=== PATIENT | male | born 1970 | race Caucasian/White ===

== ENCOUNTER 2019-05-30 13:34 | Emergency (ER) | payer OTHER ==
[2019-05-30 14:21] LABS: ABS Basophils 0.1 10^3/ul (0-0.2); ABS Eosinophils 0.3 10^3/ul (0-0.6); ABS Lymphocytes 1.6 10^3/ul (1.0-4.8); ABS Monocytes 0.9 10^3/ul (0-0.8); ABS Neutrophils 12.2 10^3/ul (1.5-7.7); Eosinophil % 1.7 %; Hematocrit 45 % (42-52); Hemoglobin 15.4 g/dL (14.0-18.0); Lymphocyte % 10.7 %; Mean Corpuscular HGB Conc 34 g/dL (31-36); Mean Corpuscular Hemoglobin 30 pg (27-31); Mean Corpuscular Volume 89 fL (80-94); Mean Platelet Volume 8.3 fL (7.4-10.4); Nucleated Red Blood Cells % 0.1; Platelet Count 304 10^3/uL (150-450); Red Blood Count 5.06 10^6 /uL (4.18-5.48); Red Cell Distribution Width 15 % (10-15)
--- NOTE | 2019-05-30 14:21 | ED ---
Abdominal Pain/Male - HPI Summary HPI Summary: 48 year old M presenting to [facility] complains of epigastric abdominal pain after drinking 1 cup of Mountain Dew at 12:00 today. The patient states the abdominal pain lasted for 2 hours and has resolved now. The patient rates the pain 9/10 initially and 0/10 currently in severity. Patient states he has been having abdominal pain after eating for 1 week. Symptoms aggravated by food. Symptoms alleviated by nothing. - History of Current Complaint Chief Complaint: EDAbdPain Stated Complaint: ABDOMINAL PAIN PER PT Time Seen by Provider: 05/30/19 14:13 Hx Obtained From: Patient Onset/Duration: Lasting Days, Lasting Weeks, Still Present Timing: Constant Severity Initially: Severe Severity Currently: None Pain Intensity: 0 Pain Scale Used: 0-10 Numeric Location: Epigastric Aggravating Factor(s): Food Alleviating Factor(s): Nothing Associated Signs And Symptoms: Positive: Other - Dizziness - Allergies/Home Medications Allergies/Adverse Reactions: Allergies Allergy/AdvReac Type Severity Reaction Status Date / Time No Known Allergies Allergy Verified 06/30/12 12:40 PMH/Surg Hx/FS Hx/Imm Hx Endocrine/Hematology History: Denies: Hx Diabetes, Hx Thyroid Disease Cardiovascular History: Reports: Hx Myocardial Infarction - stents x 2 2011 Denies: Hx Hypertension Respiratory History: Denies: Hx Asthma, Hx Chronic Obstructive Pulmonary Disease (COPD) GI History: Denies: Hx Ulcer - Surgical History Surgery Procedure, Year, and Place: 2009 - Stent placement Infectious Disease History: No Infectious Disease History: Denies: Hx Clostridium Difficile, Hx Hepatitis, Hx Human Immunodeficiency Virus (HIV), Hx of Known/Suspected MRSA, Hx Shingles, Hx Tuberculosis, Hx Known/ Suspected VRE, Hx Known/Suspected VRSA, History Other Infectious Disease, Traveled Outside the [place] in Last 30 Days - Family History Known Family History: Positive: Hypertension - Social History Alcohol Use: None Hx Substance Use: No Substance Use Type: Reports: None Hx Tobacco Use: Yes Smoking Status (MU): Heavy Every Day Tobacco Smoker Type: Cigarettes Amount Used/How Often: 1/2 ppd Length of Time of Smoking/Using Tobacco: 34 years Review of Systems Positive: Abdominal Pain Neurological: Other - dizziness All Other Systems Reviewed And Are Negative: Yes Physical Exam - Summary Physical Exam Summary: Appearance: The patient is well-nourished in no acute distress and in no acute pain. Skin: The skin is warm and dry, and skin color reflects adequate perfusion. HEENT: The head is normocephalic and atraumatic. The pupils are equal and reactive. The conjunctivae are clear and without drainage. Nares are patent and without drainage. Mouth reveals moist mucous membranes, and the throat is without erythema and exudate. The external ears are intact. The ear canals are patent and without drainage. The tympanic membranes are intact. Neck: The neck is supple with full range of motion and non-tender. There are no carotid bruits. There is no neck vein distension. Respiratory: Chest is non-tender. Lungs are clear to auscultation and breath sounds are symmetrical and equal. Cardiovascular: Heart is regular rate and rhythm. There is no murmur or rub auscultated. There is no peripheral edema and pulses are symmetrical and equal. Abdomen: The abdomen is soft. There is some mild epigastric tenderness. There are normal bowel sounds heard in all four quadrants and there is no organomegaly palpated. Musculoskeletal: There is no back tenderness noted. Extremities are non-tender with full range of motion. There is good capillary refill. There is no peripheral edema or calf tenderness elicited. Neurological: Patient is alert and oriented to person, place and time. The patient has symmetrical motor strength in all four extremities. Cranial nerves are grossly intact. Deep tendon reflexes are symmetrical and equal in all four extremities. Psychiatric: The patient has an appropriate affect and does not exhibit any anxiety or depression. Triage Information Reviewed: Yes Vital Signs On Initial Exam: Initial Vitals Temp Pulse Resp BP Pulse Ox 95.8 F 67 16 182/85 94 05/30/19 13:38 05/30/19 13:38 05/30/19 13:38 05/30/19 13:38 05/30/19 13:38 Vital Signs Reviewed: Yes Diagnostics - Vital Signs Vital Signs Temp Pulse Resp BP Pulse Ox 05/30/19 13:38 95.8 F 67 16 182/85 94 - Laboratory Result Diagrams: 05/30/19 14:13 05/30/19 14:13 Lab Statement: Any lab studies that have been ordered have been reviewed, and results considered in the medical decision making process. - Additional Comments Diagnostic Additional Comments: Gallbladder US shows, per radiologist: 1. Cholelithiasis with mild gallbladder wall thickening and small volume of pericholecystic fluid as well as mild tenderness when scanning over the gallbladder fossa concerning for potential early cholecystitis. 2. Negative for biliary dilatation. 3. Hepatomegaly and hepatosteatosis. ED physician has reviewed this report. Re-Evaluation - Re-Evaluation First Eval Re-Evaluation Time: 15:57 Comment: patient updated on results of Gallbladder US. patient informed of the possibility of surgery Second Eval Re-Evaluation Time: 16:21 Comment: surgery MOBILE UI DESIGNER in ED to see patient and states that patient does not want to stay in the hospital and wants to go home Abdominal Pain Male Course/Dx - Course Course Of Treatment: Mr. Kc has had epigastric pain every time he eats tried to eat anything in the last week. He drank a Mountain Dew today and the pain returned therefore he came to the department. He was here in the hospital cafeteria. The pain resolved just about when he got here. He was mildly tender in the epigastrium and right upper quadrant. He was nontoxic in appearance stable vitals. His labs revealed a leukocytosis of 15,000. He had some mild elevations of his transaminases. Ultrasound of his gallbladder revealed a likely early acute cholecystitis. Dr. Suh was consulted and came to the department. The patient was adamant about not staying in the hospital tonight as he had things to do at home. He did promise to return tomorrow at which time he will be admitted. He was given a prescription for Augmentin and discharged to return tomorrow. - Diagnoses Provider Diagnoses: Acute cholecystitis - Provider Notifications Discussed Care Of Patient With: Win Staples Time Discussed With Above Provider: 15:55 Instructed by Provider To: Other - Dr. Staples, surgery, will come see the patient in the ED. Spoke with Dr. Vera, hospitalist, at 16:35 who is aware of the patient. Dr. Staples states at 17:06 that patient insists on going home. Dr. Staples recommends giving patient a prescription for Augmentin and follow up from [facility] and him. Discharge ED - Sign-Out/Discharge Documenting (check all that apply): Patient Departure - Discharge Patient Received Moderate/Deep Sedation with Procedure: No - Discharge Plan Condition: Fair Disposition: HOME Prescriptions: Amoxicillin/Clavulanate TAB* [Augmentin TAB 875*] 875 mg PO BID #20 tab Patient Education Materials: Cholecystitis (ED) Referrals: [facility] [Outside] - 2 Days Win Staples MD [Medical Doctor] - If Needed Additional Instructions: [facility]3 [facility]. Follow up with Dr. Staples if needed. RETURN TO EMERGENCY DEPARTMENT FOR NEW OR WORSENING SYMPTOMS. - Billing Disposition and Condition Condition: FAIR Disposition: Home - Attestation Statements Document Initiated by Scribe: Yes Documenting Scribe: Fernanda Dowling Provider For Whom Sadaf is Documenting (Include Credential): Dereje Mathur MD Scribe Attestation: Fernanda Benjamin, scribed for Dereje Mathur MD on 05/30/19 at 1855. Scribe Documentation Reviewed: Yes Provider Attestation: The documentation as recorded by the Fernanda benoit accurately reflects the service I personally performed and the decisions made by me, Dereje Mathur MD Status of Scribe Document: Viewed
[2019-05-30 14:49] LABS: Albumin 4.4 g/dL (3.2-5.2); Albumin/Globulin Ratio 1.5 (1-3); BUN/Creatinine Ratio 11.9 (8-20); Calcium 9.5 mg/dL (8.6-10.3); EGFR Non-African American 96.7 (>60); Magnesium 1.8 mg/dL (1.9-2.7); Potassium 3.8 mmol/L (3.5-5.0); Total Bilirubin 1.2 mg/dL (0.2-1.0); Total Protein 7.4 g/dL (6.4-8.9)
[2019-05-30 17:36] VITALS: BP 155/71
--- NOTE | 2019-05-30 19:20 | CONS ---
SURGICAL CONSULTATION NOTE: DATE OF CONSULT: 05/30/19 LOCATION: This patient was seen on 05/30/19 in the [facility] Emergency Department. ATTENDING PHYSICIAN: Dr. Staples. CHIEF COMPLAINT: Abdominal pain. HISTORY OF PRESENT ILLNESS: The patient is a 48-year-old male who presented to the [facility] Emergency Department today complaining of epigastric abdominal pain after drinking 1 cup of Mountain Dew around noon today. The patient stated that the abdominal pain lasted for 2 hours and by the time he reached the emergency department, the pain had resolved. Initially, the pain was rated at 9/10 and currently is 0 to 1/10. The patient states he has been having abdominal pain in the epigastric region after eating fatty foods for the past week. He has had 1 episode of vomiting today. In the emergency room, his white count was elevated at 15, total bilirubin 1.2, AST 128, ALT 115, alkaline phosphatase 109, lipase was normal at 11, and glucose was elevated at 154. A gallbladder ultrasound revealed cholelithiasis with mild gallbladder wall thickening and a small amount of pericholecystic fluid and question of a mild Gu's sign, question early cholecystitis. The patient denies any dark urine or dysuria; he reports that he had a bowel movement this morning that was brown and formed. He denies having had similar episodes of abdominal pain in the past. PAST MEDICAL HISTORY: Significant for myocardial infarction in 2012 with stenting x2 here at [facility]. He also states that he is prediabetic but is not on any current medications. PAST SURGICAL HISTORY: Limited to stents for myocardial infarction. MEDICATIONS: None currently. ALLERGIES: No known drug allergies. REVIEW OF SYSTEMS: Constitutional: No fevers, chills, excessive fatigue, or unintended weight loss. Endocrine: Prediabetic by the patient's report. No known thyroid disease. Respiratory: No shortness of breath or chronic cough. No recent upper respiratory infections. Cardiovascular: No chest pain or palpitations; history of myocardial infarction with stenting x2 in 2011; he states that he was on Plavix for about 1 year; he has not had any recent cardiology followup. Gastrointestinal: As described in history of present illness. Genitourinary: No dysuria. No change in the color of urine. Musculoskeletal: No myalgias or joint pain. Neurologic: No headache or blurred vision or areas of focal weakness. Skin: History of eczema, currently left upper extremity is erythematous with multiple small skin lesions consistent with eczema. General: No previous anesthesia complications. No history of deep vein thrombosis or pulmonary embolism. No bleeding tendencies and he has never received a blood transfusion. SOCIAL HISTORY: He is single and lives with his ex; he works at the [employer] ; he smokes about 1 pack of cigarettes per day and also smokes marijuana, but denies the current use of other substances but many years ago used IV drugs. FAMILY HISTORY: Mother from natural causes. Father at age 82 with history of aneurysm. The patient's sister is alive at age 60 and has been treated for unspecified type of cancer. PHYSICAL EXAMINATION: General: The patient is a 48-year-old obese male, well developed, in no acute distress. Height 5 feet 9 inches, weight 227 pounds, body mass index 33.5. Blood pressure 153/83, pulse 88 and regular, respiratory rate 20, O2 saturation on room air 97%, temp 96. Skin: Warm; upper extremities , left greater than right with eczema. No open sores. HEENT: Benign. Neck: Supple. No cervical lymphadenopathy. Lungs: Breath sounds bilaterally clear and equal. Heart: Regular rate and rhythm. No murmurs or rubs appreciated. Abdomen: Obese, soft, and nondistended, mildly tender to palpation over the epigastric region in the right upper quadrant. No guarding or rebound; no obvious masses or organomegaly but exam is limited by body habitus; negative Gu's sign. Genitalia and rectal exams: Deferred. Extremities: Warm without edema. Neurologic: Alert and oriented x3. IMPRESSION: Early cholecystitis; cholelithiasis; the patient is adamant about leaving the hospital today; his abdominal pain has completely resolved; Dr. Staples also examined the patient and made a plan for the patient to be discharged from the emergency department and discussed the plan with Dr. Dereje Mathur; the patient will be given a prescription for Augmentin 875 mg p.o. q.12 hours; he will have a followup in our office with Dr. Staples. He will be referred to [facility] to establish primary care and he will be referred for cardiology clearance prior to laparoscopic cholecystectomy in the future. TIME SPENT: Seventy five minutes with greater than 50% in [id number], history taking, physical examination, patient education and coordination of care. SIMON DE LOS SANTOS NP [id number]/[facility] #: [id number] [facility] C[facility]ERSergio
[2019-05-31] MEDS ORDERED: Magnesium Sulfate 1 GM IV* 1 GM/100 ML BAG IV ONE (01:18)
== END 2019-05-30 17:27 | disposition home or self-care (01) ==
LOC: ED 13:34
DX: K81.0 Acute cholecystitis (principal); F17.210 Nicotine dependence, cigarettes, uncomplicated; I25.2 Old myocardial infarction; Z95.5 Presence of coronary angioplasty implant and graft; Z79.899 Other long term (current) drug therapy; R16.0 Hepatomegaly, not elsewhere classified
CPT/HCPCS: 36415; 76705; 80053; 83605; 83690; 83735; 84484; 85025; 93005; 99283

== ENCOUNTER 2019-05-30 22:37 | Inpatient (IN) | payer OTHER ==
--- NOTE | 2019-05-30 22:42 | ED ---
Abdominal Pain/Male - HPI Summary HPI Summary: 48 yo male [place] [facility] [place] requesting admission. He tells me that he was seen here earlier today and was told he had early acute cholecystitis. Surgery was consulted and admission was recommended to the pt, but he declined as he had things to do at home. There is question whether he was advised to return 05/30 for admission or if he was to f/u outpatient with surgery on Sunday. Pt tells me that he was told to return tomorrow (05/30) for admission. He is here stating that his pain has not changed. He is still nauseous and vomiting when eating. Denies fever, chills, SOB, chest pain. - History of Current Complaint Stated Complaint: GALLBLADDER PER EMS Time Seen by Provider: 05/30/19 22:42 Hx Obtained From: Patient Severity Initially: Mild Severity Currently: Mild Pain Intensity: 1 Pain Scale Used: 0-10 Numeric - Allergies/Home Medications Allergies/Adverse Reactions: Allergies Allergy/AdvReac Type Severity Reaction Status Date / Time No Known Allergies Allergy Verified 06/30/12 12:40 PMH/Surg Hx/FS Hx/Imm Hx Endocrine/Hematology History: Denies: Hx Diabetes, Hx Thyroid Disease Cardiovascular History: Reports: Hx Myocardial Infarction - stents x 2 2011 Denies: Hx Hypertension Respiratory History: Denies: Hx Asthma, Hx Chronic Obstructive Pulmonary Disease (COPD) GI History: Denies: Hx Ulcer - Surgical History Surgery Procedure, Year, and Place: 2009 - Stent placement Infectious Disease History: Denies: Hx Clostridium Difficile, Hx Hepatitis, Hx Human Immunodeficiency Virus (HIV), Hx of Known/Suspected MRSA, Hx Shingles, Hx Tuberculosis, Hx Known/ Suspected VRE, Hx Known/Suspected VRSA, History Other Infectious Disease - Family History Known Family History: Positive: Hypertension - Social History Alcohol Use: None Hx Substance Use: No Substance Use Type: Reports: None Hx Tobacco Use: Yes Smoking Status (MU): Heavy Every Day Tobacco Smoker Type: Cigarettes Amount Used/How Often: 1/2 ppd Length of Time of Smoking/Using Tobacco: 34 years Review of Systems Constitutional: Negative Cardiovascular: Negative Respiratory: Negative Positive: Abdominal Pain, Nausea Genitourinary: Negative Neurological: Negative Psychological: Normal All Other Systems Reviewed And Are Negative: No Physical Exam - Summary Physical Exam Summary: GENERAL: NAD. WDWN. No pain distress. SKIN: No rashes, sores, or open wounds. HEENT: Head: AT/NC Eyes: PERRLA. EOM intact. NECK: Supple. Nontender. No lymphadenopathy. CHEST: CTAB. No r/r/w. No accessory muscle use. Breathing comfortably and in no distress. CV: RRR. Without m/r/g. Pulses intact. Brisk cap refill. ABDOMEN: Soft. NTTP. No distention or guarding. No CVA tenderness. Bowel sounds present NEURO: Alert. PSYCH: Age appropriate behavior. Triage Information Reviewed: Yes Vital Signs On Initial Exam: Vital Signs: Temp Pulse Resp BP Pulse Ox 96.6 F 53 16 193/87 93 05/30/19 22:43 05/30/19 23:13 05/30/19 22:43 05/30/19 23:13 05/30/19 23:13 Vital Signs Reviewed: Yes Abdominal Pain Male Course/Dx - Course Course Of Treatment: Reviewed labs, imaging, and EKG from earlier. Called to Dr. Staples of surgery and he states that if Hospitalist wants to admit pt he will see pt in the morning. Discussed case with Dr. Zmimer of Hospitalist service who agrees to admit the patient. - Diagnoses Provider Diagnoses: Cholecystitis Discharge ED - Sign-Out/Discharge Documenting (check all that apply): Patient Departure Patient Received Moderate/Deep Sedation with Procedure: No - Discharge Plan Condition: Stable Disposition: ADMITTED TO [facility] - Billing Disposition and Condition Condition: STABLE Disposition: Admitted to [facility]
[2019-05-31] MEDS ORDERED: traMADol TAB* 50 MG PO PRN (01:04)
[2019-05-31] MEDS ORDERED: Acetaminophen TAB* 325 MG PO PRN (01:15)
[2019-05-31 01:19] LABS: ABS Lymphocytes 0.7 10^3/ul (1.0-4.8); ABS Monocytes 0.8 10^3/ul (0-0.8); ABS Neutrophils 16.9 10^3/ul (1.5-7.7); Eosinophil % 0.1 %; Hematocrit 45 % (42-52); Hemoglobin 15.1 g/dL (14.0-18.0); Mean Corpuscular HGB Conc 34 g/dL (31-36); Mean Corpuscular Hemoglobin 30 pg (27-31); Mean Corpuscular Volume 88 fL (80-94); Mean Platelet Volume 8.6 fL (7.4-10.4); Platelet Count 318 10^3/uL (150-450); Red Blood Count 5.04 10^6 /uL (4.18-5.48); Red Cell Distribution Width 15 % (10-15); White Blood Count 18.5 10^3/uL (3.5-10.8)
[2019-05-31] MEDS ORDERED: hydrALAZINE IV* 20 MG/ML VIAL IV SLOW PU PRN (01:20)
[2019-05-31 01:37] LABS: Albumin 4.5 g/dL (3.2-5.2); Albumin/Globulin Ratio 1.5 (1-3); BUN/Creatinine Ratio 13.2 (8-20); C Reactive Protein 11.89 mg/L (<8.01); Calcium 9.2 mg/dL (8.6-10.3); EGFR African American 131.4 (>60); EGFR Non-African American 108.6 (>60); Globulin 3.1 g/dL (2-4); Indirect Bilirubin 1.1 mg/dL (0.3-1.0); Potassium 3.9 mmol/L (3.5-5.0); Total Bilirubin 1.5 mg/dL (0.2-1.0); Total Protein 7.6 g/dL (6.4-8.9)
[2019-05-31] MEDS: Metoprolol Succinate XL TAB* 25 MG PO SCH ×2 (02:39→12:50)
[2019-05-31] MEDS: cefTRIAXone(*) 1 GM in NS 0.9% 50 ML* 50 ML IVPB SCH ×2 (02:39→23:55)
[2019-05-31 02:49] LABS: INR 1.16 (0.82-1.09)
[2019-05-31 03:05] LABS: HDL Cholesterol 35.9 mg/dL
[2019-05-31] MEDS: metroNIDAZOLE IV 500 MG/100ML* 500 MG/100 ML BAG IVPB SCH ×4 (04:00→21:46)
--- NOTE | 2019-05-31 06:31 | HP ---
HISTORY AND PHYSICAL: DATE OF ADMISSION: 05/31/19 ADMITTING PROVIDER: Brennen Zimmer MD. PRIMARY CARE PROVIDER: None; goes to the [facility]. CHIEF COMPLAINT: Epigastric pain, nausea, vomiting, known gallstones found on ED visit a day prior to admission. HISTORY OF PRESENT ILLNESS: Simone Kc is a 48-year-old male with past medical history of total occlusion of LAD, status post drug-eluting stent on 02/08. He was noncompliant with his Plavix medication and within 6 weeks had a complete reocclusion. This was opened by balloon angioplasty. He does not have medical insurance, has limited access to primary medical care. He has followed with the [facility] to evaluate for left arm pustules in the setting of underlying psoriasis. He was in his usual state of health, but about a week ago, developed some intermittent epigastric pain, worse after every meal, especially fatty meals, has had multiple episodes of nausea and vomiting. He is a bit of a reticent historian. He was seen on 05/30/19 in the emergency room, had a gallbladder ultrasound which demonstrated possible early acute cholecystitis with mild gallbladder wall thickening, small volume of pericholecystic fluid, and mild sonographic Gu sign. No biliary dilatation. There was hepatomegaly and hepatosteatosis. He had a leukocytosis of 15, elevated transaminitis, AST of 128, ALT of 115, alk phos 109, T. bili of 1.2. Glucose was elevated at 154, lipase was normal at 11. He was evaluated by Dr. Staples and Yolanda Em of the surgery team, who recommended admission for cholecystectomy. He insisted that he had things that he had to attend to at home, which he would not provide details about, and the plan was for him to get Augmentin and follow up as an outpatient with Surgery after possibly cardiac clearance. He was not able to fill his Augmentin as [facility] had already closed. His pain had improved from 10/10 around noon on 05/30/19 to about he says 3/10. He still feels like he cannot eat food, so he returned at this time wanting surgery. He has a history of also right-sided, with occasional left-sided, sciatica-like symptoms which limits his ability to exercise. He occasionally has a cough. Denies wheeze. Denies chest pain. He is on no medications. He did get some antibiotic about 6 weeks ago from a free clinic when he developed pustules on his left forearm that he attempted to pop. He does not know which antibiotic he got. He was referred to the hospitalist service for admission after the ED physician spoke with Dr. Staples. PAST MEDICAL HISTORY: CAD, status post STEMI with LAD complete occlusion with revascularization balloon angioplasty on 06/27/11 after medication noncompliance with dual-antiplatelet therapy. Psoriasis, obesity (BMI 33.5), current smoker. MEDICATIONS: None. ALLERGIES: No known drug allergies. FAMILY HISTORY: Mother of natural causes. Father of an aneurysm at age 82. Sister is alive at age 60 with unknown cancer. SOCIAL HISTORY: The patient is a current smoker, 1 pack per day, 25 to 30 years. Denies alcohol use. He does occasionally smoke marijuana. He works as a cook at the [employer]. He lives with a roommate. Medical surrogate is his sister Aicha Oh, . He desires to be a full code. PHYSICAL EXAMINATION GENERAL APPEARANCE: In no acute distress. VITAL SIGNS: Temperature 96.6, pulse 84, satting 95% on room air, and blood pressure initially 130/70 but as high as 193/87. HEENT: Normocephalic, atraumatic. Pupils equal, round, and reactive to light. Extraocular motions intact. No scleral icterus. NECK: Supple. LUNGS: Clear to auscultation bilaterally without wheezing, rales, or rhonchi. CARDIOVASCULAR: Regular rate and rhythm. No murmurs, rubs, or gallops. ABDOMEN: Soft. Epigastric tenderness and slight right upper quadrant tenderness. No Gu sign. No rebound tenderness EXTREMITIES: Warm, well perfused. No peripheral edema. NEUROLOGIC: Cranial nerves II through XII intact. Construction Carpenter strength intact. SKIN: Multiple tattoos throughout body. He has psoriasis like scaly plaques on his left forearm. DIAGNOSTIC STUDIES/LAB DATA: None yet from this admission, but at 2 p.m. on , he had a white count of 15.0, hemoglobin 15.4, hematocrit 45, platelets 304. Sodium 139, potassium 3.8, chloride 101, carbon dioxide 33, BUN 10, creatinine 0.84, glucose 154, lactic acid 1.1, calcium 9.5, magnesium 1.8. Total bili 1.2, AST 128, ALT 115, alk phos 109. Troponin 0.00. Lipase 11. EKG at that time showed normal sinus rhythm, Q waves in V1 through V3, poor R- wave progression, T-wave flattening, QTC 453, normal axis. Imaging: Gallbladder ultrasound on 05/30/19 demonstrated cholelithiasis with mild gallbladder wall thickening and small volume of pericholecystic fluid as well as mild tenderness when scanning over the gallbladder fossa with consideration for potential early cholecystitis. No biliary dilatation. There is hepatomegaly and hepatosteatosis. ASSESSMENT AND PLAN: Simone Kc is a 48-year-old male with past medical history of coronary artery disease, status post left anterior descending artery stent, 30- pack-year current smoker, obesity with BMI of 33.5, presenting with gallbladder full of gallstones, some mildly thickened gallbladder wall and pericholecystic fluid, concerning for early cholecystitis, leukocytosis of 15, and continued abdominal discomfort especially after food, which will cause nausea and vomiting, is being admitted to the hospitalist service with plan to be evaluated by Dr. Staples, who was involved in the ED yesterday, knows about the patient and will see the patient later in the morning with a possible plan for surgical intervention during this admission. He does meet 1 systemic inflammatory response syndrome criteria with his leukocytosis and I am waiting admission labs at this time to include LFTs, BMP, CBC, CRP, INR, blood culture, A1c, lipid profile, and lactic acid. We will control his pain with Tylenol and tramadol for moderate, give him ceftriaxone and metronidazole given the early acute cholecystitis and leukocytosis, clinically nontoxic-appearing and does not meet sepsis criteria at this time. His blood pressure is elevated in the setting of pain. I will give him hydralazine p.r.n., and I am going to start metoprolol succinate 25 mg p.o. daily. Given his history of myocardial infarction and cardiac risk factors, unclear if he has hypertension outside the stetting of pain. I will give him Zofran for nausea, put him on n.p.o. diet except for ice chips and medications. If surgery is delayed, I will put him on a low-fat liquid diet. He will get heparin for DVT prophylaxis. Medical surrogate is his sister. In terms of surgical risk stratification, RCRI includes high-risk intraperitoneal surgery and his coronary artery disease, RCRI of 2. His exercise tolerance is unknown given his right-sided sciatica, largely limiting him from any exercise. EKG shows Q waves anteroseptally. He is euvolemic on exam. I will also add on a BNP. If that is elevated, would recommend echocardiogram to evaluate. For now, he has RCRI of 2, class III risk with a 10.1% risk of cardiac arrest, myocardial infarction, or in the 30 days of surgery. As mentioned, we will add on A1c and lipid panel to help further clarify any of his modifiable cardiac risks. He is a full code. [id number]/[facility] #: [id number] MTDD
[2019-05-31] MEDS ORDERED: Ondansetron INJ* 2 MG/ML VIAL IV PRN (08:14)
[2019-05-31] MEDS ORDERED: NS 0.9% 1000 ML** 1,000 ML IV SCH (08:15)
--- NOTE | 2019-05-31 10:40 | PN ---
Subjective Date of Service: 05/31/19 Interval History: Mr. Kc is feeling better today. Abdominal pain has improved. No N/V reported during my exam, though nursing did report that he vomited shortly after. He denies CP, SOB, dizziness. He may be willing to start medication for HTN and HLD, but is worried because the last antihypertensive he was on caused him to syncopize. Nursing requesting IVF as the patient is NPO and now vomiting. Family History: Unchanged from Admission Social History: Unchanged from Admission Past Medical History: Unchanged from Admission Objective Active Medications: Acetaminophen (Tylenol Tab*) 650 mg PO Q6H PRN MILD PAIN or TEMP > 100.4 Hydralazine HCl (Apresoline Iv*) 20 mg IV SLOW PU Q2H PRN Systolic Bp Greater Than:180 Ceftriaxone Sodium 1 gm/ (Sodium Chloride) 50 mls @ 100 mls/hr IVPB Q24HR@2200 [facility] Metronidazole/Sodium Chloride (Flagyl 500 Mg Ivpb*) 500 mg in 100 mls @ 100 mls /hr IVPB Q6H [facility] Sodium Chloride (Ns 0.9% 1000 Ml) 1,000 mls @ 100 mls/hr IV PER RATE [facility] Metoprolol Succinate (Toprol Xl Tab*) 25 mg PO DAILY [facility] Nicotine (Nicotine Patch 14 Mg/24 Hr*) 1 patch TRANSDERM DAILY [facility] Ondansetron HCl (Zofran Inj*) 4 mg IV Q6H PRN NAUSEA/VOMITING Tramadol HCl (Ultram*) 50 mg PO Q8H PRN PAIN - MODERATE Vital Signs - 8 hr 05/31/19 05/31/19 04:19 07:55 Temperature 98.7 F 98.5 F Pulse Rate 87 77 Respiratory 18 20 Rate Blood Pressure 149/76 116/60 (mmHg) O2 Sat by Pulse 93 93 Oximetry Oxygen Devices in Use Now: None Appearance: Middle-aged male laying in bed in NAD Eyes: No Scleral Icterus Ears/Nose/Mouth/Throat: Mucous Membranes Moist Neck: NL Appearance and Movements; NL JVP, Trachea Midline Respiratory: Symmetrical Chest Expansion and Respiratory Effort, Clear to Auscultation Cardiovascular: NL Sounds; No Murmurs; No JVD, RRR Abdominal: - - Normoactive BS, tender to epigastric area Extremities: No Edema Neurological: Alert and Oriented x 3 Lines/Tubes/Other Access: Clean, Dry and Intact Peripheral IV Result Diagrams: 05/31/19 01:09 05/31/19 01:09 Assess/Plan/Problems-Billing Assessment: Mr. Kc is a 48 yo M with PMH of CAD and [place] w/ stent x1 and subsequent balloon angioplasty, obesity, and tobacco use; who presented to the ED with c/o epigastric pain with N/V and was found to have early findings of acute cholecystitis. - Patient Problems (1) Cholecystitis Code(s): K81.9 - CHOLECYSTITIS, UNSPECIFIED Comment: - Pain and N/V slightly improved with abx - Leukocytosis, but not meeting sepsis criteria - Elevated LFTs - Appreciate Surgery consult - Start IVF while NPO - Continue ceftriaxone, Flagyl (2) Hypertension Code(s): I10 - ESSENTIAL (PRIMARY) HYPERTENSION Comment: - SBP up to 190s on admission - Patient reports he was previously on medication which caused syncope, but unknown what medication - Continue metoprolol, hydralazine PRN (3) CAD (coronary artery disease) Code(s): I25.10 - ATHSCL HEART DISEASE OF [place] CORONARY ARTERY W/O ANG PCTRS Comment: - STEMI with complete LAD occlusion s/p ALYSON in 2010, though patient was not compliant with Plavix and had complete reocclusion within 6 weeks requiring balloon angioplasty - Not on any home medications (though certainly should be) (4) Hyperlipidemia Code(s): E78.5 - HYPERLIPIDEMIA, UNSPECIFIED Comment: - LDL 115 - Start atorvastatin (5) Tobacco dependence Code(s): F17.200 - NICOTINE DEPENDENCE, UNSPECIFIED, UNCOMPLICATED Comment: - Encourage cessation - Continue nicotine patch (6) DVT prophylaxis Code(s): Z29.9 - ENCOUNTER FOR PROPHYLACTIC MEASURES, UNSPECIFIED Comment: - SCDs (7) Full code status Code(s): Z78.9 - OTHER SPECIFIED HEALTH STATUS Comment: Status and Disposition: Inpatient. Anticipate d/c home when medically stable. He is at high risk of noncompliance. Attending: Patricia Rodarte
[2019-05-31] MEDS: Nicotine PATCH 14 MG/24 HR* PATCH TRANSDERM SCH (11:04)
--- NOTE | 2019-05-31 12:29 | CONS ---
CC: [facility] CONSULTATION REPORT: DATE OF CONSULT: 05/31/19 LOCATION: In Room 342. HISTORY OF PRESENT ILLNESS: I saw Mr. Kc in the emergency room with Yolanda Em yesterday . Please refer to the note from . I agreed with the plan at that time for ad mission, IV antibiotics with possibility of surgical intervention after cardiology evaluation. The p ajit has lost to followup after undergoing stent placement years ago. The patient currently has no primary care doctor. In the emergency room yesterday, the patient had concern about discussing something with his employer and had to leave. It is unclear if the patient is still actively using drugs as he did admit to [facility] IV drugs in the past. Nevertheless, the patient represented to the emergency room, unable to obta in prescription for pain medications and antibiotics and could not deal with the pain and was admitte d to the hospitalist service in the overnight period for diagnosis of acute cholecystitis. PAST MEDICAL HISTORY: Reviewed at the time of initial evaluation on 05/30/19. PAST SURGICAL HISTORY: Reviewed at the time of initial evaluation on 05/30/19. Today, the patient states he is feeling somewhat better after IV fluids and antibiotics. He is still vomiting. He has been ambulatory and he has been afebrile. PHYSICAL EXAM: Today, he is afebrile. Vital signs are stable. Alert and oriented x3, in no apparen t distress. Head, Ears, Eyes, Nose, and Throat: Normocephalic, atraumatic. Sclerae anicteric. Abd omen: Soft, obese, nontender. No palpable lesions. Rectal Exam: Not performed. Extremities: Wit hin normal limits. DIAGNOSTIC STUDIES/LAB DATA: Labs reviewed show white count elevated at 18.5, up from 15 yesterday w ith left shift. The patient's chemistry panel shows increase in total bilirubin to 1.5 as well as el evation of transaminases. Ultrasound from yesterday reviewed. Stones and mild gallbladder wall thickening. IMPRESSION AND PLAN: Acute cholecystitis with 7 days of symptoms in a patient who is at risk of not being able to followup with both doctors and with medication recommendations. I recommend at this ti me admission, IV antibiotics, n.p.o. status at least for now with revisiting this tomorrow. We can c onsider surgical intervention next week depending how patient is. He would need a cardiology evaluat ion preoperatively. My thoughts at this time would be to have patient just be treated with antibioti cs at this point and followup as an outpatient, but to be admitted through this portion of his course . We will continue n.p.o. and possibly start him on an oral diet tomorrow. I will discuss with the hospitalist. I do recommend repeat labs tomorrow and I also recommend a hemoglobin A1c. [id number]/[facility] #: [id number]
[2019-05-31] MEDS: NS 0.9% 1000 ML** 1,000 ML IV SCH ×2 (14:53→20:50)
[2019-05-31] MEDS: Atorvastatin* 40 MG TAB PO SCH (17:40)
[2019-05-31] MEDS ORDERED: Nicotine Patch Removal NOTE PATCH OFF SCH (21:00)
[2019-06-01] MEDS: metroNIDAZOLE IV 500 MG/100ML* 500 MG/100 ML BAG IVPB SCH ×3 (02:48→14:54)
[2019-06-01 06:15] LABS: Hematocrit 44 % (42-52); Hemoglobin 14.5 g/dL (14.0-18.0); Mean Corpuscular HGB Conc 33 g/dL (31-36); Mean Corpuscular Hemoglobin 30 pg (27-31); Mean Corpuscular Volume 89 fL (80-94); Platelet Count 267 10^3/uL (150-450); Red Cell Distribution Width 15 % (10-15); White Blood Count 18.2 10^3/uL (3.5-10.8)
[2019-06-01 06:30] LABS: Albumin/Globulin Ratio 1.4 (1-3); BUN/Creatinine Ratio 16.1 (8-20); Calcium 8.9 mg/dL (8.6-10.3); EGFR African American 112.4 (>60); EGFR Non-African American 92.9 (>60); Globulin 2.8 g/dL (2-4); Potassium 3.6 mmol/L (3.5-5.0); Total Bilirubin 1.9 mg/dL (0.2-1.0); Total Protein 6.8 g/dL (6.4-8.9)
[2019-06-01 07:25] LABS: ABS Basophils 0.1 10^3/ul (0-0.2); ABS Eosinophils 0.1 10^3/ul (0-0.6); ABS Lymphocytes 1.8 10^3/ul (1.0-4.8); ABS Monocytes 1.9 10^3/ul (0-0.8); ABS Neutrophils 14.2 10^3/ul (1.5-7.7); Eosinophil % 0.5 %; Lymphocyte % 9.9 %
[2019-06-01] MEDS: NS 0.9% 1000 ML** 1,000 ML IV SCH (07:51)
[2019-06-01] MEDS: Metoprolol Succinate XL TAB* 25 MG PO SCH (08:43)
[2019-06-01] MEDS: Nicotine PATCH 14 MG/24 HR* PATCH TRANSDERM SCH (08:48)
--- NOTE | 2019-06-01 13:08 | PN ---
Subjective Date of Service: 06/01/19 Interval History: Patient seen and examined. Appears to be disinterested in participating in care. States he wants to leave the hospital today. Explained to patient it would be in his best interest to stay and be treated with IV antibiotics and continued to be monitored by surgery. Also explained that echocardiogram has been ordered given his cardiac history and potential for surgery at some point. Patient indicates he may decline this test. Otherwise he has no complaints. States no fever or chills, no n/v, no abdominal pains. Family History: Unchanged from Admission Social History: Unchanged from Admission Past Medical History: Unchanged from Admission Objective Active Medications: Acetaminophen (Tylenol Tab*) 650 mg PO Q6H PRN PRN Reason: MILD PAIN or TEMP > 100.4 Atorvastatin Calcium (Lipitor*) 40 mg PO 1700 [facility] Last Admin: 05/31/19 17:40 Dose: 40 mg Hydralazine HCl (Apresoline Iv*) 20 mg IV SLOW PU Q2H PRN PRN Reason: Systolic Bp Greater Than:180 Last Admin: 05/31/19 02:40 Dose: 20 mg Ceftriaxone Sodium 1 gm/ (Sodium Chloride) 50 mls @ 100 mls/hr IVPB Q24HR@2200 [facility] Last Admin: 05/31/19 23:55 Dose: 100 mls/hr Metronidazole/Sodium Chloride (Flagyl 500 Mg Ivpb*) 500 mg in 100 mls @ 100 mls /hr IVPB Q6H [facility] Last Admin: 06/01/19 08:43 Dose: 100 mls/hr Sodium Chloride (Ns 0.9% 1000 Ml) 1,000 mls @ 150 mls/hr IV PER RATE [facility] Last Admin: 06/01/19 07:51 Dose: 150 mls/hr Metoprolol Succinate (Toprol Xl Tab*) 25 mg PO DAILY [facility] Last Admin: 06/01/19 08:43 Dose: 25 mg Nicotine (Nicotine Patch 14 Mg/24 Hr*) 1 patch TRANSDERM DAILY [facility] Last Admin: 06/01/19 08:48 Dose: Not Given Ondansetron HCl (Zofran Inj*) 4 mg IV Q6H PRN PRN Reason: NAUSEA/VOMITING Pharmacy Profile Note (Nicotine Patch Removal Note*) 1 note PATCH OFF 2100 [facility] Last Admin: 05/31/19 21:46 Dose: Not Given Tramadol HCl (Ultram*) 50 mg PO Q8H PRN PRN Reason: PAIN - MODERATE Vital Signs - 8 hr 06/01/19 06/01/19 06/01/19 08:00 08:39 12:21 Temperature 97.3 F 97.6 F Pulse Rate 71 64 Respiratory 16 16 16 Rate Blood Pressure 145/80 132/70 (mmHg) O2 Sat by Pulse 98 97 Oximetry Oxygen Devices in Use Now: None Appearance: alert, NAD Ears/Nose/Mouth/Throat: Mucous Membranes Moist Neck: NL Appearance and Movements; NL JVP, Trachea Midline Respiratory: Symmetrical Chest Expansion and Respiratory Effort, Clear to Auscultation Cardiovascular: NL Sounds; No Murmurs; No JVD, RRR Abdominal: NL Sounds; No Tenderness; No Distention, No Hepatosplenomegaly, - - obese Extremities: No Edema Skin: No Rash or Ulcers Neurological: Alert and Oriented x 3 Nutrition: - - NPO Result Diagrams: 06/01/19 05:50 06/01/19 05:50 Microbiology and Other Data: Microbiology 05/31/19 02:34 Aerobic Blood Culture - Final Blood Venous Not Reportable Anaerobic Blood Culture - Final Not Reportable Blood Culture - Preliminary No Growth Day 1 05/31/19 02:34 Aerobic Blood Culture - Preliminary Blood Venous No Growth Day 1 Anaerobic Blood Culture - Preliminary No Growth Day 1 Assess/Plan/Problems-Billing Assessment: Mr. Kc is a 48 yo M with PMH of CAD and [place] w/ stent x1 and subsequent balloon angioplasty, obesity, and tobacco use; who presented to the ED with c/o epigastric pain with N/V and was found to have early findings of acute cholecystitis. - Patient Problems (1) Cholecystitis Code(s): K81.9 - CHOLECYSTITIS, UNSPECIFIED SNOMED Code(s): 79038111 Comment: - Pain and N/V improved with abx - Leukocytosis, but not meeting sepsis criteria - Elevated LFTs, trending down - Appreciate Surgery consult, no indication for immediate surgery - Start IVF while NPO - Continue ceftriaxone, Flagyl (2) CAD (coronary artery disease) Code(s): I25.10 - ATHSCL HEART DISEASE OF [place] CORONARY ARTERY W/O ANG PCTRS SNOMED Code(s): 92120473 Comment: - STEMI with complete LAD occlusion s/p ALYSON in 2010, though patient was not compliant with Plavix and had complete reocclusion within 6 weeks requiring balloon angioplasty - Not on any home medications? Appears that compliance with any medical recommendations may be an ongoing issue - ECHO ordered in case there is an indication for surgery, however, patient does not appear motivated for any interventions (3) Hyperlipidemia Code(s): E78.5 - HYPERLIPIDEMIA, UNSPECIFIED SNOMED Code(s): 08525142 Comment: - LDL 115 - Started atorvastatin (4) Hypertension Code(s): I10 - ESSENTIAL (PRIMARY) HYPERTENSION SNOMED Code(s): 97248974 Comment: - SBP up to 190s on admission - Patient reports he was previously on medication which caused syncope, but unknown what medication - Continue metoprolol, hydralazine PRN (5) Tobacco dependence Current Visit: Yes Status: Acute Code(s): F17.200 - NICOTINE DEPENDENCE, UNSPECIFIED, UNCOMPLICATED SNOMED Code(s): 77308741 Comment: - Encourage cessation - Continue nicotine patch (6) DVT prophylaxis Code(s): Z29.9 - ENCOUNTER FOR PROPHYLACTIC MEASURES, UNSPECIFIED SNOMED Code( s): 955879250 Comment: - SCDs (7) Full code status Code(s): Z78.9 - OTHER SPECIFIED HEALTH STATUS SNOMED Code(s): 013477535 Comment: Status and Disposition: Inpatient. Anticipate d/c home when medically stable. He is at high risk of noncompliance for both his cholecystitis and cardiac issues.
--- NOTE | 2019-06-01 13:39 | PN ---
Progress Note - Progress Note Date of Service: 06/01/19 SOAP: Subjective: Pt seen and examined. Feeling well. pos appetite. no pain Objective: Temp Pulse Resp BP Pulse Ox 97.6 F 64 16 132/70 97 06/01/19 12:21 06/01/19 12:21 06/01/19 12:21 06/01/19 12:21 06/01/19 12:21 abdo: soft/ obese/ NT/ ND Assessment: Acute cholecystitis. Improving with abx Plan: No surgical intervention at this time. Abx for 1 week F[facility]u as [facility] continue cardiology w/u
[2019-06-01 15:55] VITALS: BP 132/68
[2019-06-01 15:58] LABS: Urine Appearance Clear; Urine Bacteria Absent (Absent); Urine Bilirubin Negative (Negative); Urine Blood Negative (Negative); Urine Color Amber; Urine Glucose Negative (Negative); Urine Ketones 1+ (Negative); Urine Nitrite Negative (Negative); Urine Protein Negative (Negative); Urine Red Blood Cell Trace(0-2/hpf) (Absent); Urine Specific Gravity 1.028 (1.010-1.030); Urine Squamous Epithelial Cell Present (Absent); Urine Urobilinogen Negative (Negative); Urine White Blood Cell Trace(0-5/hpf) (Absent)
[2019-06-01] MEDS: Atorvastatin* 40 MG TAB PO SCH (17:16)
--- NOTE | 2019-06-02 23:52 | DS ---
CC: Dr. Brennen Zimmer and Dr. Celine Freire of [facility]; Dr. Win Staples, surgical service * DISCHARGE SUMMARY: DATE OF ADMISSION: 05/31/19 DATE OF DISCHARGE: 06/01/19 PRIMARY CARE PROVIDER: None, usually attends [facility]. MY ATTENDING FOR TODAY: Dr. Sunita Salmeron.* (DICTATED BY JUANCHO MACHADO NP) HOSPITAL COURSE: Please refer to admitting H and P on 05/31/19. In short, Mr. Kc is a 48-year-old male with a past medical history of NC, coronary artery disease with total occlusion of his LAD in 2010 with a history of noncompliance with medical management. The patient presented to the [facility] on multiple occasions with pustules in his arm on many occasions, but other than that his medical history is somewhat unclear. He is a smoker. Approximately 1 week ago , the patient stated he started developing some epigastric pain worsening in the postprandial period, especially after fatty meals. He is also started having some subsequent nausea and vomiting. It was progressing to the point where the patient was having rapid vomiting, so he came to the emergency department to be evaluated. Gallbladder ultrasound at that time demonstrated possible early acute cholecystitis. He also had some hepatomegaly and hepatosteatosis. He had marked leukocytosis and some transaminitis as well. He was admitted with a surgical consult at that time for early acute cholecystitis. It should also be noted that he had a 10/10 pain and was unable to take any p.o. at that time. He was seen in consultation with Dr. Win Staples of surgical service, who recommended initially antibiotic therapy, IV fluids, and n.p.o. status. Because the patient had a significant cardiac history in the form of left main disease and noncompliance with medical management and restenosis of his stents, it was made clear to the patient that he would need cardiac clearance before having any surgical intervention. However , the patient did respond initially to antibiotics therapy, IV fluids, and being n.p.o. As such, Dr. Staples felt that it would be preferable for the patient to proceed with antibiotic therapy as opposed to urgent surgical intervention. I did recommend an echocardiogram for the patient because of his lack of followup per Cardiology. He did not have that while he was admitted during this hospitalization. I did have discussion with Dr. Staples regarding the patient's progress. Dr. Staples did feel that he could be discharged home on p.o. antibiotics with outpatient followup with [facility] in the next week because the patient did not have any signs or symptoms of sepsis. He did have an elevated white count, but was afebrile. He had a mildly elevated CRP of 11.89. His transaminitis did begin to trend down on his second round of labs. So, essentially, the patient was feeling better and improving. He did not report any pain on the day of discharge. He did not have any nausea or vomiting, and he was able to tolerate a diet on the day of discharge. It should also be noted the patient was not threatening to leave against medical advice, but was very demanding during his hospitalization saying that he was not willing to stay in the hospital for any further intervention. This made the patient very difficult to treat, so I think it may be difficult to continue to treat this patient in the outpatient setting. In any case, the patient was stable at the time he was discharged. His medications were sent to [facility], which is his pharmacy of the choice. DISCHARGE DIAGNOSES: 1. Early acute cholecystitis. 2. History of coronary artery disease with noncompliance. 3. Hypertension, uncontrolled. 4. Hyperlipidemia. 5. Obesity. 6. Tobacco dependence. 7. Transaminitis secondary to #1. DISCHARGE MEDICATIONS: Include: 1. Flagyl 500 mg p.o. t.i.d. x7 days. 2. Cipro 500 mg p.o. b.i.d. x7 days. New medications also include: 1. Atorvastatin 40 mg p.o. in the evening. 2. Metoprolol succinate XL 25 mg p.o. daily. 3. Also recommended nicotine patch 1 patch transderm daily. REVIEW OF SYSTEMS AT DAY OF DISCHARGE AND PHYSICAL EXAMINATION: Please refer to my note on the day of discharge for these examinations. DISPOSITION: The patient was discharged in stable condition to home. FOLLOWUPS: The patient was instructed to follow up with Dr. Win Staples and the [facility]. DIET: Low-fat heart healthy diet as tolerated. ACTIVITY: Progress as tolerated. The patient was discharged in stable condition. All questions were answered. The patient stated his understanding of the discharge instructions, medications , and followups. JUANCHO MACHADO, GOLF C[employer] REPAIRER [id number]/[facility] #: [id number] [facility]
--- NOTE | 2019-06-26 18:35 | HP ---
H&P (Free Text) History and Physical: ADDENDUM to ORIGINAL H&P 05/31: REVIEW OF SYSTEMS: Complete 14 point review of systems negative except as per HPI
== END 2019-06-01 17:35 | disposition home or self-care (01) ==
LOC: ED 22:37 → MEDTELE 05-31 01:05 → SSU 05-31 01:14
PROVIDERS: ADMIT Internal Medicine; ATTEND Internal Medicine
DX: K80.00 Calculus of gallbladder with acute cholecystitis without obstruction (principal); I25.10 Atherosclerotic heart disease of native coronary artery without angina pectoris; F17.210 Nicotine dependence, cigarettes, uncomplicated; K76.0 Fatty (change of) liver, not elsewhere classified; I10 Essential (primary) hypertension; E78.5 Hyperlipidemia, unspecified; R74.0 Nonspecific elevation of levels of transaminase and lactic acid dehydrogenase [LDH]; E66.9 Obesity, unspecified; L40.9 Psoriasis, unspecified; M54.31 Sciatica, right side; I25.2 Old myocardial infarction; Z91.14 Patient's other noncompliance with medication regimen; Z68.33 Body mass index [BMI] 33.0-33.9, adult; Z82.49 Family history of ischemic heart disease and other diseases of the circulatory system; Z80.9 Family history of malignant neoplasm, unspecified
CPT/HCPCS: 36415; 80048; 80053; 80061; 80076; 81003; 81015; 83036; 83605; 83880; 85025; 85610; 86140; 87040; 87086; 99283; A9270-GY; J0360; J0696

== ENCOUNTER 2019-08-13 09:20 | Emergency (ER) | payer OTHER ==
--- NOTE | 2019-08-13 09:34 | ED ---
Abdominal Pain/Male - HPI Summary HPI Summary: Pt. is a 49 y.o male who presents to the ER for evaluation of acute upper abdominal pain x 1 day. Pt. was seen and admitted to [facility] about two months ago and dx with cholelithiasis and possible early cholecystitis. Pt. was dc to [facility] with surgery for elective cholecystectomy. Pt. states he was unable to schedule an appointment. Pt. states this morning he developed acute, severe RUQ/ epigastric pain, nausea and diaphoresis. Pt. called 911. Pain lasted about 45 minutes and pt. is currently pain free. Past hx of CAD, HTN, HLD, obesity, smoker. Sxs are moderate in severity. No current modifying factors. - History of Current Complaint Chief Complaint: EDAbdPain Stated Complaint: ABD PAIN PER EMS Time Seen by Provider: 08/13/19 09:21 Hx Obtained From: Patient Pain Intensity: 0 - Allergies/Home Medications Allergies/Adverse Reactions: Allergies Allergy/AdvReac Type Severity Reaction Status Date / Time No Known Allergies Allergy Verified 08/13/19 09:24 Home Medications: Home Medications NK [No Home Medications Reported] 08/13/19 [History Confirmed 08/13/19] PMH/Surg Hx/FS Hx/Imm Hx Previously Healthy: Yes Endocrine/Hematology History: Denies: Hx Diabetes, Hx Thyroid Disease Cardiovascular History: Reports: Hx Myocardial Infarction - stents x 2 2011 Denies: Hx Hypertension Respiratory History: Denies: Hx Asthma, Hx Chronic Obstructive Pulmonary Disease (COPD) GI History: Denies: Hx Ulcer Sensory History: Reports: Hx Contacts or Glasses Denies: Hx Hearing Aid Opthamlomology History: Reports: Hx Contacts or Glasses - Surgical History Surgery Procedure, Year, and Place: 2009 - Stent placement Hx Anesthesia Reactions: No Infectious Disease History: No Infectious Disease History: Denies: Hx Clostridium Difficile, Hx Hepatitis, Hx Human Immunodeficiency Virus (HIV), Hx of Known/Suspected MRSA, Hx Shingles, Hx Tuberculosis, Hx Known/ Suspected VRE, Hx Known/Suspected VRSA, History Other Infectious Disease, Traveled Outside the [place] in Last 30 Days - Family History Known Family History: Positive: Hypertension, Non-Contributory - Social History Occupation: Unemployed Lives: With Family Alcohol Use: None Hx Substance Use: No Substance Use Type: Reports: None Hx Tobacco Use: Yes Smoking Status (MU): Heavy Every Day Tobacco Smoker Type: Cigarettes Amount Used/How Often: 1/2 ppd Length of Time of Smoking/Using Tobacco: 34 years Review of Systems Constitutional: Negative Negative: Fever Positive: Nasal Discharge Cardiovascular: Negative Negative: Palpitations, Chest Pain Positive: Cough. Negative: Shortness Of Breath Positive: Abdominal Pain, Nausea. Negative: Vomiting, Diarrhea Genitourinary: Negative Negative: dysuria, flank pain Skin: Negative Neurological: Negative All Other Systems Reviewed And Are Negative: Yes Physical Exam Triage Information Reviewed: Yes Vital Signs On Initial Exam: Initial Vitals Temp Pulse Resp BP Pulse Ox 96.1 F 86 16 140/88 94 08/13/19 09:22 08/13/19 09:22 08/13/19 09:22 08/13/19 09:22 08/13/19 09:22 Vital Signs Reviewed: Yes Appearance: Positive: Well-Appearing - Pt. sitting up in bed in NAD. Skin: Positive: Warm, Dry Head/Face: Positive: Normal Head/Face Inspection Eyes: Positive: Normal, EOMI Neck: Positive: Supple Respiratory/Lung Sounds: Positive: Breath Sounds Present, Other - Faint wheeze throughout. Cardiovascular: Positive: Normal, RRR Abdomen Description: Positive: Other: - Obese. Abd. is soft with mild tenderness to RUQ with mild positive page sign. Neurological: Positive: Normal, CN Intact II-III Psychiatric: Positive: Affect/Mood Appropriate Procedures - Sedation Patient Received Moderate/Deep Sedation with Procedure: No Diagnostics - Vital Signs Vital Signs Temp Pulse Resp BP Pulse Ox 08/13/19 09:22 96.1 F 86 16 140/88 94 - Laboratory Result Diagrams: 08/13/19 10:01 08/13/19 10:01 Lab Statement: Any lab studies that have been ordered have been reviewed, and results considered in the medical decision making process. Abdominal Pain Male Course/Dx - Course Course Of Treatment: Pt. presenting for eval after a 45 minute episode of pain. Pt. is currently pain free. Basic labs and ecg ordered. ECG done at 0939 shows a sinus rhythm of 71bpm, normal axis, incomplete RBB, no STEMI. Labs show minimally elevated WBC, liver and bilirubin normal. Negative trop. On re-exam pt. resting comfortably and has had no further pain. Pt. agreeable with dc home to . with [facility] and surgery for elective robert. Pt. given warning signs to return. Pt. understands and agrees with plan. - Diagnoses Differential Diagnosis/HQI/PQRI: AMI, Gall Bladder Disease, Hepatitis, Pancreatitis, Peptic Ulcer Disease, Pneumonia, Renal Colic Provider Diagnoses: Cholelithiasis Discharge ED - Sign-Out/Discharge Documenting (check all that apply): Patient Departure - Discharge Plan Condition: Improved Disposition: HOME Patient Education Materials: Gallstones (ED) Referrals: [facility] [Outside] Mick Mcgarry MD [Medical Doctor] - Additional Instructions: Call the [facility] today for follow up appointment and for referral to surgery Avoid foods high in fat/grease Return to ER for severe/constant pain, fever, vomiting, or if concerned - Billing Disposition and Condition Condition: IMPROVED Disposition: Home
[2019-08-13 09:59] LABS: Urine Appearance Clear; Urine Bilirubin Negative (Negative); Urine Blood Negative (Negative); Urine Color Yellow; Urine Glucose Negative (Negative); Urine Ketones Negative (Negative); Urine Nitrite Negative (Negative); Urine Protein Negative (Negative); Urine Urobilinogen Negative (Negative)
[2019-08-13 10:12] LABS: ABS Basophils 0.1 10^3/ul (0-0.2); ABS Eosinophils 0.3 10^3/ul (0-0.6); ABS Lymphocytes 1.3 10^3/ul (1.0-4.8); ABS Monocytes 0.8 10^3/ul (0-0.8); Hematocrit 47 % (42-52); Hemoglobin 15.5 g/dL (14.0-18.0); Lymphocyte % 11.3 %; Mean Corpuscular HGB Conc 33 g/dL (31-36); Mean Corpuscular Hemoglobin 30 pg (27-31); Mean Corpuscular Volume 90 fL (80-94); Mean Platelet Volume 8.5 fL (7.4-10.4); Nucleated Red Blood Cells % 0.1; Platelet Count 312 10^3/uL (150-450); Red Blood Count 5.22 10^6 /uL (4.18-5.48); Red Cell Distribution Width 14 % (10-15); White Blood Count 11.6 10^3/uL (3.5-10.8)
[2019-08-13 10:26] LABS: Albumin 4.2 g/dL (3.2-5.2); Albumin/Globulin Ratio 1.5 (1-3); BUN/Creatinine Ratio 15.7 (8-20); Calcium 9.5 mg/dL (8.6-10.3); EGFR African American 143.9 (>60); EGFR Non-African American 118.9 (>60); Globulin 2.8 g/dL (2-4); Potassium 4.8 mmol/L (3.5-5.0); Total Bilirubin 0.9 mg/dL (0.2-1.0)
[2019-08-13 10:31] LABS: Troponin I 0.01 ng/mL (<0.03)
[2019-08-13 11:35] VITALS: BP 155/111
== END 2019-08-13 11:35 | disposition home or self-care (01) ==
LOC: ED 09:20
DX: I25.10 Atherosclerotic heart disease of native coronary artery without angina pectoris (principal); I10 Essential (primary) hypertension; E78.00 Pure hypercholesterolemia, unspecified; F17.210 Nicotine dependence, cigarettes, uncomplicated; I25.2 Old myocardial infarction; Z95.5 Presence of coronary angioplasty implant and graft; K80.20 Calculus of gallbladder without cholecystitis without obstruction
CPT/HCPCS: 36415; 80053; 81003; 83690; 84484; 85025; 93005; 99283

== ENCOUNTER 2024-07-23 09:34 | Observation (INO) ==
[2024-07-23 12:21] LABS: ABS Basophils 0.3 10^3/uL (0.0-0.1); ABS Eosinophils 0.2 10^3/uL (0.0-0.5); ABS Lymphocytes 3.7 10^3/uL (1.0-4.8); ABS Monocytes 1.2 10^3/uL (0.0-1.1); ABS Neutrophils 12.2 10^3/uL (1.5-7.6); ABS Nucleated RBC 0.02 10^3/ul; Eosinophil % 0.9 %; Hematocrit 47.7 % (38-53); Hemoglobin 16.2 g/dL (13.2-16.3); Lymphocyte % 20.9 %; Mean Corpuscular Hemoglobin 29.8 pg (27-33); Mean Corpuscular Volume 87.6 fL (80-97); Mean Platelet Volume 9.2 fL (7.5-11.2); Nucleated Red Blood Cells % 0.1 %/100WBC (0.0-0.8); Platelet Count 314 10^3/uL (150-450); Red Blood Count 5.44 10^6/uL (4.06-5.63); Red Cell Distribution Width 13.7 % (12-17); White Blood Count 17.5 10^3/uL (3.6-10.2)
[2024-07-23] MEDS: Iodixanol 320 (CONTRAST) 100 ML SDV IV ONE (12:28)
[2024-07-23 12:50] LABS: Activated Partial Thrombo Time 29.6 seconds (26.0-38.0); INR 1.09 (0.85-1.14)
[2024-07-23 13:14] LABS: Albumin 4.4 g/dL (3.2-5.2); Calcium 9.6 mg/dL (8.6-10.3); Creatinine, Serum 0.75 mg/dL (0.67-1.17); Direct Bilirubin 0.2 mg/dL (0.03-0.18); Globulin 2.2 g/dL (2-4); HDL Cholesterol 22.1 mg/dL; Indirect Bilirubin 1.3 mg/dL (0.3-1.0); Potassium 3.3 mmol/L (3.5-5.0); Total Bilirubin 1.5 mg/dL (0.2-1.0); Total Protein 6.6 g/dL (6.4-8.9); eGFR CKD-EPI 105.9 (>60)
[2024-07-23 15:29] LABS: Urine Appearance Clear; Urine Bilirubin Negative (Negative); Urine Blood Negative (Negative); Urine Color Light-Yellow; Urine Glucose 4+ (>=1000 mg/dL) (Negative); Urine Ketones Negative (Negative); Urine Nitrite Negative (Negative); Urine Protein Negative (Negative); Urine Urobilinogen Negative (Negative); Urine pH 5.5 (5.0-8.0)
[2024-07-23] MEDS: KCL 20 MEQ/100 ML IVPREMIX 20 MEQ/100 ML BAG IV ONE (19:33)
[2024-07-23] MEDS: Gadoteridol (CONTRAST) 279.3 MG/ML 10 ML IV ONE (22:25)
[2024-07-24] MEDS: Azithromycin 500 mg/250 ml NS 500 MG/250 ML BAG IVPB SCH (00:23)
[2024-07-24] MEDS: Albuterol/Ipratropium NEB.SOL (2.5/0.5 MG) 3 ML NEB.SOLN INH SCH (00:23)
[2024-07-24] MEDS: Enoxaparin 40 MG/0.4 ML SYR SUBCUT SCH ×2 (00:24→17:04)
[2024-07-24] MEDS: cefTRIAXone 1 gm/50 mL D5W 1 GM/50 ML BAG IV SCH (00:24)
[2024-07-24] MEDS: Thiamine 100 MG/ML 2 ml VIAL (200 mg) IM ONE (00:37)
[2024-07-24] MEDS ORDERED: Dextrose 50% Syringe 50 ml 25 GM/50 ML SYRINGE IV PUSH PRN (02:59)
[2024-07-24] MEDS: Lactated Ringers 1000 ml BAG 1,000 ML IV SCH (04:23)
[2024-07-24 06:22] LABS: ABS Basophils 0.2 10^3/uL (0.0-0.1); ABS Eosinophils 0.2 10^3/uL (0.0-0.5); ABS Lymphocytes 3.6 10^3/uL (1.0-4.8); ABS Neutrophils 10.9 10^3/uL (1.5-7.6); ABS Nucleated RBC 0.01 10^3/ul; Eosinophil % 1.4 %; Hematocrit 48.4 % (38-53); Hemoglobin 16.2 g/dL (13.2-16.3); Lymphocyte % 22.5 %; Mean Corpuscular Hemoglobin 29.5 pg (27-33); Mean Corpuscular Hgb Conc 33.5 g/dL (31-36); Mean Corpuscular Volume 87.9 fL (80-97); Mean Platelet Volume 9.1 fL (7.5-11.2); Nucleated Red Blood Cells % 0.1 %/100WBC (0.0-0.8); Platelet Count 267 10^3/uL (150-450); Red Blood Count 5.51 10^6/uL (4.06-5.63); Red Cell Distribution Width 13.8 % (12-17); White Blood Count 15.9 10^3/uL (3.6-10.2)
[2024-07-24 06:58] LABS: Calcium 9.2 mg/dL (8.6-10.3); Creatinine, Serum 0.6 mg/dL (0.67-1.17); Magnesium 1.6 mg/dL (1.9-2.7); Potassium 3.2 mmol/L (3.5-5.0); eGFR CKD-EPI 113.3 (>60)
[2024-07-24 07:23] LABS: HDL Cholesterol 22.4 mg/dL
[2024-07-24] MEDS: Magnesium Sulfate 2 gm BAG 2 GM/50 ML BAG IVPB ONE (08:21)
[2024-07-24] MEDS: Potassium Chloride LIQUID 20 MEQ/15 ML LIQUID PO ONE (08:59)
[2024-07-24] MEDS: Potassium Chlor 20 meq TAB.ER PO ONE (08:59)
[2024-07-24] MEDS ORDERED: Multivitamins/Minerals TAB PO SCH (09:00)
[2024-07-24] MEDS: Sulfur Hexaflouride MICROSPHR 25 MG VIAL IV PRN (15:51)
[2024-07-24] MEDS ORDERED: Insulin GLARGINE 100 un/ml 10 ml VIAL SUBCUT SCH (21:00)
[2024-07-25 07:04] LABS: ABS Basophils 0.1 10^3/uL (0.0-0.1); ABS Eosinophils 0.2 10^3/uL (0.0-0.5); ABS Lymphocytes 3.8 10^3/uL (1.0-4.8); ABS Monocytes 0.9 10^3/uL (0.0-1.1); ABS Neutrophils 9.2 10^3/uL (1.5-7.6); ABS Nucleated RBC 0.02 10^3/ul; Eosinophil % 1.2 %; Hematocrit 46.8 % (38-53); Hemoglobin 16.1 g/dL (13.2-16.3); Lymphocyte % 26.9 %; Mean Corpuscular Hemoglobin 29.7 pg (27-33); Mean Corpuscular Hgb Conc 34.4 g/dL (31-36); Mean Corpuscular Volume 86.5 fL (80-97); Mean Platelet Volume 8.8 fL (7.5-11.2); Nucleated Red Blood Cells % 0.2 %/100WBC (0.0-0.8); Platelet Count 281 10^3/uL (150-450); Red Blood Count 5.41 10^6/uL (4.06-5.63); White Blood Count 14.3 10^3/uL (3.6-10.2)
[2024-07-25 07:51] LABS: Calcium 9.2 mg/dL (8.6-10.3); Creatinine, Serum 0.63 mg/dL (0.67-1.17); Magnesium 1.7 mg/dL (1.9-2.7); Potassium 3.3 mmol/L (3.5-5.0); eGFR CKD-EPI 111.6 (>60)
[2024-07-25] MEDS: Potassium Chloride LIQUID 20 MEQ/15 ML LIQUID PO ONE (10:02)
[2024-07-25] MEDS: Insulin GLARGINE 100 un/ml 10 ml VIAL SUBCUT ONE (10:03)
[2024-07-25 18:03] VITALS: BP 126/75
[2024-07-26] MEDS ORDERED: Insulin GLARGINE 100 un/ml 10 ml VIAL SUBCUT SCH (09:00)
== END 2024-07-25 18:20 | disposition home health service (06) ==
LOC: EDHOLD 09:34 → ED 09:34 → EDHOLD 07-24 03:19 → MEDTELE 07-24 04:19
PROVIDERS: ADMIT Internal Medicine; ATTEND Internal Medicine